=== PATIENT | female | born 1990 | race Caucasian/White ===

== ENCOUNTER 2017-02-27 20:15 | Emergency (ER) | payer OTHER ==
--- NOTE | 2017-02-27 20:36 | ED Physician Documentation ---
PD HPI UPPER EXT INJURY - Stated complaint Stated Complaint: RT FINGER INJ - Chief complaint Chief Complaint: Laceration - History obtained from History obtained from: Patient - History of Present Illness Location: Right, Finger Type of injury: Other Where injury occurred: Home Timing - onset: Enter time (16:30), Today Timing - details: Abrupt onset Pain level now: 4 Improved by: Rest Worsened by: Moving, Palpating Similar symptoms before: Has not had sx before Recently seen: Not recently seen - Additonal information Additional information: while cleaning at home at approximately 4:30 PM today, patient's right fifth fingernail got caught on fabric, causing her nail to avulse although the proximal-most portion remains intact an in place. Patient is right-hand dominant. Review of Systems Skin: denies: Laceration (s) Musculoskeletal: reports: Extremity pain. denies: Extremity swelling Neurologic: denies: Focal weakness, Numbness PD PAST MEDICAL HISTORY - Past Medical History Past Medical History: No - Present Medications Home Medications: Ambulatory Orders Medication Instructions Recorded Confirmed oxyCODONE/ACET 5/325 [Percocet 5 1 - 2 each PO Q6H PRN #14 tablet 02/27/17 mg/325 mg] - Allergies Allergies/Adverse Reactions: Allergies Allergy/AdvReac Type Severity Reaction Status Date / Time latex Allergy Rash Verified 02/27/17 20:23 niacin AdvReac Anaphylaxis Verified 02/27/17 20:23 - Living Situation Living Arrangement: reports: At home PD ED PE NORMAL - Vitals Vital signs reviewed: Yes - General General: Alert and oriented X 3, No acute distress, Well developed/nourished - Neuro Neuro: No motor deficit, No sensory deficit PD ED PE EXPANDED - Extremities Extremities: Other (right fifth finger: nail is avulsed except for proximal- most portion (2-3 mm visible beyond proximal nail fold). there is no laceration and the remaining portion of the nail is firmly in place under an intact proximal nail fold) Results - Vitals Vitals: Vital Signs - 24 hr 02/27/17 02/27/17 20:20 21:37 Temperature 35.7 C L 37.1 C Heart Rate 74 74 Respiratory 16 16 Rate Blood Pressure 129/82 H 125/81 H O2 Saturation 98 97 Oxygen O2 Source Room air PD MEDICAL DECISION MAKING - ED course Complexity details: considered differential, d/w patient Departure - Departure Disposition: 01 Home, Self Care Clinical Impression: Avulsion of fingernail of right hand Condition: Good Instructions: ED Avulsion Nail Complete Follow-Up: RAFAEL Wise [Provider Group] (Follow up with your primary care provider by the end of the week for a recheck of the finger) Prescriptions: oxyCODONE/ACET 5/325 [Percocet 5 mg/325 mg] 1 - 2 each PO Q6H PRN #14 tablet PRN Reason: Pain Discharge Date/Time: 02/27/17 21:37
[2017-02-27] MEDS ORDERED: oxyCODONE 5 MG TABLET PO STA (20:43)
[2017-02-27] MEDS ORDERED: oxyCODONE 5 MG TABLET ONE (20:57)
[2017-02-27] MEDS ORDERED: oxyCODONE/ACET 5/325 Prepack 4 PO STA (21:11)
[2017-02-27] MEDS ORDERED: BACITRACIN OINT TOP STA (21:11)
[2017-02-27] MEDS ORDERED: BACITRACIN OINT TOP ONE (21:17)
[2017-02-27] MEDS ORDERED: oxyCODONE/ACET 5/325 Prepack 4 PO ONE (21:18)
[2017-02-27 21:39] VITALS: BP 125/81
== END 2017-02-27 21:37 | disposition home or self-care (01) ==
LOC: ED 20:15
DX: S61.306A Unspecified open wound of right little finger with damage to nail, initial encounter (principal); W23.1XXA Caught, crushed, jammed, or pinched between stationary objects, initial encounter; Y93.E9 Activity, other interior property and clothing maintenance
CPT/HCPCS: 99283; A9270

== ENCOUNTER 2018-10-17 12:11 | Outpatient (CLI) | payer OTHER ==
--- NOTE | 2018-10-18 08:22 | MRI Report ---
Reason: LOW BACK PAIN Procedure Date: 10/17/2018 Accession Number: [id number] / [id number] Procedure: MRI - Lumbar Spine W/O CPT Code: FULL RESULT: EXAM: MRI LUMBAR SPINE WITHOUT CONTRAST EXAM DATE: 10/17/2018 01:13 PM. CLINICAL HISTORY: Low back pain. COMPARISON: None. TECHNIQUE: Multiplanar, multisequence T1-weighted and fluid-sensitive sequences of the lumbar spine from T12 to S1 without contrast. Other: None. FINDINGS: There is no significant atrophy of the paraspinal musculature or the psoas musculature. The abdominal aorta is of normal caliber. The kidneys are without evidence of hydronephrosis. The images of the liver and the spleen that are within the provided field of view exhibit normal signal intensities. The conus terminates at the mid L1 vertebral body level. T12-L1: There is no significant disk bulge, central or foraminal stenosis. The facets are normal. L1-L2: There is no significant disk bulge, central or foraminal stenosis. The facets are normal. L2-L3: There is no significant disk bulge, central or foraminal stenosis. The facets are normal. L3-L4: There is no significant disk bulge, central or foraminal stenosis. The facets are normal. L4-L5: There is no significant disk bulge, central or foraminal stenosis. The facets are normal. L5-S1: There is a small disk bulge with superimposed central protrusion of the disk with annular tear producing a mild central canal stenosis. The facets are normal. There is no significant foraminal stenosis. IMPRESSION: 1. There is a small disk bulge with superimposed central protrusion of the disk with annular tear at L5-S1 producing a mild central canal stenosis. Comment: The following findings are so common in adults without low back pain that while we report their presence, they must be interpreted with caution and in the context of the clinical situation. (Reference Nelliek et al, Spine 2001) Prevalence of findings in patients without low back pain: Disk degeneration (any evidence): 92% Disk desiccation/T2 signal loss: 83% Disk height loss: 56% Disk bulge: 64% Disk protrusion: 32% Annular tear/high intensity zone: 38% RADIA
== END 2018-10-17 12:12 | disposition home or self-care (01) ==
LOC: DI 12:11
PROVIDERS: ATTEND General Practice
DX: M51.27 Other intervertebral disc displacement, lumbosacral region (principal); M48.07 Spinal stenosis, lumbosacral region
CPT/HCPCS: 72148